=== PATIENT | female | born 1950 | race Caucasian/White ===

== ENCOUNTER → 2025-04-21 16:35 | Outpatient (REF) | payer OTHER, SELFPAY ==
[2025-04-21 17:40] LABS: ALT (SGPT) 13 U/L (0-35); AST (SGOT) 18 U/L (14-36); Albumin 4.3 g/dl (3.5-5.0); Alkaline Phosphatase 53 U/L (38-126); Blood Urea Nitrogen 19 mg/dl (7-17); Calcium 9.4 mg/dl (8.4-10.2); Carbon Dioxide 29 mmol/L (22-30); Chloride 105 mmol/L (98-107); Glucose 90 mg/dl (70-99); Potassium 4.2 mmol/L (3.5-5.1); Sodium 139 mmol/L (135-145); Total Protein 6.4 g/dl (6.3-8.2); eGFR > 60.00
== END ==
LOC: REG 16:35
PROVIDERS: ATTENDING PHYSICIAN Nurse Practitioner Acute Care
DX: C71.9 Malignant neoplasm of brain, unspecified (principal)
CPT/HCPCS: 36415; 80053

== ENCOUNTER → 2025-04-28 10:54 | Outpatient (REF) | payer OTHER, SELFPAY ==
[2025-04-28 13:52] LABS: ALT (SGPT) 31 U/L (0-35); AST (SGOT) 27 U/L (14-36); Albumin 4.1 g/dl (3.5-5.0); Alkaline Phosphatase 49 U/L (38-126); Blood Urea Nitrogen 15 mg/dl (7-17); Calcium 9.1 mg/dl (8.4-10.2); Carbon Dioxide 27 mmol/L (22-30); Chloride 106 mmol/L (98-107); Glucose 109 mg/dl (70-99); Potassium 4.3 mmol/L (3.5-5.1); Sodium 137 mmol/L (135-145); Total Protein 6.3 g/dl (6.3-8.2); eGFR > 60.00
== END ==
LOC: REG 10:54
PROVIDERS: ATTENDING PHYSICIAN Nurse Practitioner Acute Care
DX: C71.9 Malignant neoplasm of brain, unspecified (principal)
CPT/HCPCS: 36415; 80053

== ENCOUNTER → 2025-05-06 11:55 | Outpatient (REF) | payer OTHER, SELFPAY ==
[2025-05-06 13:10] LABS: Hematocrit 41.0 % (37.0-47.0); Hemoglobin 13.7 g/dL (12.0-16.0); Mean Corp Hgb Conc. 33.4 g/dL (33.0-37.0); Mean Corpuscular Volume 89.3 fL (81.0-99.0); Nucleated Red Blood Cells % 0 %; Platelet Count 236 10^3/uL (130-400); Red Cell Dist. Width 12.5 % (11.5-14.5)
[2025-05-06 13:56] LABS: ALT (SGPT) 30 U/L (0-35); AST (SGOT) 21 U/L (14-36); Albumin 4.2 g/dl (3.5-5.0); Alkaline Phosphatase 49 U/L (38-126); Blood Urea Nitrogen 15 mg/dl (7-17); Calcium 9.4 mg/dl (8.4-10.2); Carbon Dioxide 27 mmol/L (22-30); Chloride 106 mmol/L (98-107); Glucose 117 mg/dl (70-99); Potassium 3.9 mmol/L (3.5-5.1); Sodium 138 mmol/L (135-145); Total Protein 6.4 g/dl (6.3-8.2); eGFR > 60.00
== END ==
LOC: REG 11:55
PROVIDERS: ATTENDING PHYSICIAN Nurse Practitioner Acute Care
DX: C71.9 Malignant neoplasm of brain, unspecified (principal)
CPT/HCPCS: 36415; 80053; 85025

== ENCOUNTER → 2025-05-13 09:05 | Outpatient (REF) | payer OTHER, SELFPAY ==
[2025-05-13 09:51] LABS: Hematocrit 41.5 % (37.0-47.0); Hemoglobin 13.8 g/dL (12.0-16.0); Mean Corp Hgb Conc. 33.3 g/dL (33.0-37.0); Mean Corpuscular Volume 88.7 fL (81.0-99.0); Nucleated Red Blood Cells % 0 %; Platelet Count 246 10^3/uL (130-400); Red Cell Dist. Width 12.8 % (11.5-14.5)
[2025-05-13 14:46] LABS: AST (SGOT) 24 U/L (14-36); Albumin 4.3 g/dl (3.5-5.0); Blood Urea Nitrogen 12 mg/dl (7-17); Calcium 9.4 mg/dl (8.4-10.2); Carbon Dioxide 28 mmol/L (22-30); Chloride 105 mmol/L (98-107); Glucose 90 mg/dl (70-99); Potassium 4.3 mmol/L (3.5-5.1); Total Protein 6.5 g/dl (6.3-8.2); eGFR > 60.00
[2025-05-13 14:54] LABS: ALT (SGPT) 33 U/L (0-35); Alkaline Phosphatase 46 U/L (38-126)
[2025-05-13 15:17] LABS: Sodium 138 mmol/L (135-145)
== END ==
LOC: REG 09:05
PROVIDERS: ATTENDING PHYSICIAN Internal Medicine Hematology & Oncology
DX: C71.9 Malignant neoplasm of brain, unspecified (principal)
CPT/HCPCS: 36415; 80053; 85025

== ENCOUNTER → 2025-06-10 12:31 | Outpatient (REF) | payer OTHER, SELFPAY ==
[2025-06-10 12:57] LABS: Hematocrit 41.0 % (37.0-47.0); Hemoglobin 14.1 g/dL (12.0-16.0); Mean Corp Hgb Conc. 34.4 g/dL (33.0-37.0); Mean Corpuscular Volume 88.2 fL (81.0-99.0); Nucleated Red Blood Cells % 0 %; Platelet Count 198 10^3/uL (130-400); Red Cell Dist. Width 13.0 % (11.5-14.5)
[2025-06-10 13:58] LABS: ALT (SGPT) 23 U/L (0-35); AST (SGOT) 20 U/L (14-36); Albumin 4.2 g/dl (3.5-5.0); Alkaline Phosphatase 49 U/L (38-126); Blood Urea Nitrogen 15 mg/dl (7-17); Calcium 9.1 mg/dl (8.4-10.2); Carbon Dioxide 28 mmol/L (22-30); Chloride 104 mmol/L (98-107); Glucose 97 mg/dl (70-99); Potassium 4.4 mmol/L (3.5-5.1); Sodium 137 mmol/L (135-145); Total Protein 6.6 g/dl (6.3-8.2); eGFR > 60.00
== END ==
LOC: REG 12:31
PROVIDERS: ATTENDING PHYSICIAN Nurse Practitioner Acute Care
DX: C71.9 Malignant neoplasm of brain, unspecified (principal)
CPT/HCPCS: 36415; 80053; 85025